=== PATIENT | female | born 1975 | race Caucasian/White ===

== ENCOUNTER → 2020-09-17 15:29 | Outpatient (CLI) | payer BC, SELFPAY ==
--- NOTE | ~2020-09-17 | MM_ITS ---
EXAMINATION: MM screening [facility] HISTORY: Screening TECHNIQUE: Craniocaudal and mediolateral oblique 3-D tomosynthesis images were obtained and synthetic 2-D images were generated. CAD analysis was submitted and interpreted. COMPARISON: Comparison to multiple prior studies sequentially, with oldest reviewed study dated 11/08. BREAST PARENCHYMAL COMPOSITION: There are scattered areas of fibroglandular density. FINDINGS: There is no evidence of suspicious mass, calcification, or architectural distortion to sugg est malignancy in either breast. There has been no suspicious interval change. IMPRESSION: 1. No mammographic evidence of malignancy. 2. Recommend routine screening mammography in one year. BI-RADS Category 1: Negative Reviewed, dictated and finalized at location A.
== END ==
PROVIDERS: Visit Provider Nurse Practitioner
DX: Z12.31 Encounter for screening mammogram for malignant neoplasm of breast (principal)
CPT/HCPCS: 77063; 77067

== ENCOUNTER → 2022-02-11 08:23 | Outpatient (CLI) | payer BC, SELFPAY ==
--- NOTE | ~2022-02-11 | MM_ITS ---
EXAMINATION: MM screening [facility] HISTORY: Screening TECHNIQUE: Craniocaudal and mediolateral oblique 3-D tomosynthesis images were obtained and synthetic 2-D images were generated. CAD analysis was submitted and interpreted. COMPARISON: Comparison to multiple prior studies sequentially, with oldest reviewed study dated 11/10. BREAST PARENCHYMAL COMPOSITION: There are scattered areas of fibroglandular density. FINDINGS: There is no evidence of suspicious mass, calcification, or architectural distortion to sugg est malignancy in either breast. There has been no suspicious interval change. IMPRESSION: 1. No mammographic evidence of malignancy. 2. Recommend routine screening mammography in one year. BI-RADS Category 1: Negative Reviewed, dictated and finalized at location A.
== END ==
PROVIDERS: PCP Family Medicine; Visit Provider Advanced Practice Midwife
DX: Z12.31 Encounter for screening mammogram for malignant neoplasm of breast (principal)
CPT/HCPCS: 77063; 77067

== ENCOUNTER 2022-12-16 11:38 | Emergency (ER) | payer BC, SELFPAY ==
[2022-12-16] VITALS (21 sets, daily range): BP systolic 94–122; BP diastolic 60–82; PULSE 65–98; RESP 16–20; TEMP 36.5; O2SAT 93–100
[2022-12-16 12:06] LABS: Basophils Percent Auto 0.3 % (0.2-1.2); Eosinophils Absolute Auto 0.1 K/mm3 (0-0.3); Eosinophils Percent Auto 1.9 % (0-4.4); Hematocrit 43.1 % (37.0-47.0); Hemoglobin 14.1 g/dL (12.0-15.0); Immature Granulocyte Absolute 0.01 K/mm3 (0.00-0.031); Immature Granulocyte Percent A 0.2 % (0-0.5); Lymphocytes Absolute Auto 1.73 K/mm3 (0.9-3.2); Lymphocytes Percent Auto 29.9 % (18.3-44.2); Mean Corpuscular HGB Conc 32.7 g/dl (32-36); Mean Corpuscular Hemoglobin 28.6 pg (26-34); Mean Corpuscular Volume 87.4 fl (80-100); Mean Platelet Volume 11.9 fl (7.4-10.4); Monocytes Absolute Auto 0.5 K/mm3 (0.1-0.6); Monocytes Percent Auto 8.1 % (2.6-8.5); Neutrophils Absolute Auto 3.5 K/mm3 (1.3-6.7); Neutrophils Percent Auto 59.6 % (45.5-73.1); Platelet Count Result 232 k/mm3 (150-375); Red Blood Count 4.93 M/mm3 (4.2-5.4); Red Cell Distribution Width 14.3 % (11.5-14.5); White Blood Count 5.8 K/mm3 (4.5-10.0)
[2022-12-16 12:18] LABS: Alanine Aminotransferase 24 U/L (6-35); Albumin Level 4.2 g/dL (3.5-5.1); Alkaline Phosphatase 55 U/L (38-126); Anion Gap 16 mmol/L (8-16); Appearance Urine Clear (Clear); Aspartate Amino Transferase 34 U/L (14-36); Bacteria Urine None Seen /hpf; Bilirubin Urine Negative (Negative); Bilirubin,Total 0.5 mg/dL (0.2-1.3); Blood Urea Nitrogen 15 mg/dL (7-17); Blood Urine 1+ (Negative); Calcium 9.3 mg/dL (8.4-10.2); Carbon Dioxide 17 mmol/L (22-30); Chloride 105 mmol/L (98-107); Color Urine Yellow (Yellow); Estimated CRCL calculation 92 ml/min; Estimated Glomerular Filt Rate > 60; Glucose 85 mg/dL (65-110); Glucose Urine UA Negative (Negative); Ketones Urine 4+ mg/dL (Negative); Leukocyte Esterase Ur Trace LEU/UL (Negative); Lipase 129 U/L (23-300); Need Manual Microscopic Reviewed; Nitrate Urine Negative (Negative); Non Pathogenic Casts >20; Potassium 3.3 mmol/L (3.4-5.0); Protein Urine 1+ mg/dL (Negative); Sodium 138 mmol/L (137-145); Specific Grav Ur 1.021 (1.001-1.035); Squamous Epithelial Cell Urine Few /hpf (Few); WBC Urine 0-5 /hpf
[2022-12-16 12:21] LABS: Add Urine Microscopic? YES
[2022-12-16] MEDS: SODIUM CHLORIDE 0.9% IV 1,000 ML 999 ML IV CONT (12:57)
--- NOTE | 2022-12-16 14:45 | ED.NAVMDI ---
HPI - Nausea/Vomiting/Diarrhea General Chief complaint: Nausea/Vomiting/Diarrhea Stated complaint: HX GASTRIC BYPASS,DIZZINESS,N/V Time Seen by Provider: 12/16/22 12:37 History of Present Illness HPI Narrative: Patient is a 47-year-old female who presents ER with nausea and vomiting concerns for dehydration. Patient underwent gastric bypass surgery at [facility] 1 month ago. She is scheduled for follow-up EGD to make sure she does not have an esophageal stricture as sometimes lumpy food will get caught and she will vomit back up. No fevers or chills or sweats. No blood in emesis. No increased abdominal discomfort. No bloating. She is having flatus without issue. Related Data Home Medications Medication Instructions Recorded Confirmed cholecalciferol (vitamin D3) 1,250 1,250 mcg PO WEEKLY 11/24/22 11/24/22 mcg (50,000 unit) capsule omeprazole 20 mg capsule,delayed 20 mg PO DAILY 11/24/22 11/24/22 release Allergies Allergy/AdvReac Type Severity Reaction Status Date / Time No Known Allergies Allergy Mild Verified 12/16/22 12:51 nkfa Allergy Unknown Unknown Uncoded 12/16/22 12:51 Review of Systems Review of Systems: All systems reviewed & are unremarkable except as noted in HPI and below Constitutional: Constitutional: Denies chills, Denies fatigue and Denies fever(s) ENT: Reports dysphagia, Denies nasal congestion and Denies sore throat Cardiovascular: Cardiovascular: Denies chest pain, Denies rapid heart rate and Denies radiating jaw, neck or arm pain Respiratory: Respiratory: Denies cough and Denies dyspnea Gastrointestinal: Gastrointestinal: Denies abdominal pain, Reports nausea and Reports vomiting [facility] Past Medical History Medical History (Updated 12/16/22 @ 15:27 by Fabricio Jj MD) Gallbladder & bile duct stone, acute cholecystitis and obstruction Surgical History Surgical History (Updated 11/24/22 @ 13:49 by Miley Goode MA) Gastric bypass status for obesity H/O hernia repair Family History Family History Other Family history of malignant neoplasm Social History Social History Smoking status: Former smoker Second hand tobacco smoke exposure: No Smoking end date: 04/16/95 Alcohol intake: current Substance use: never Substance use type: does not use Living arrangements: with family Gender identity (if verbalized by the patient): Female Sexual Orientation (if Verbalized by the Patient): Straight or Heterosexual Spiritual care concerns: No Agree to blood products: Yes Exam Narrative: GENERAL: Well-appearing, well-nourished, and in no acute distress. HEAD: Normocephalic, atraumatic. ENT: Mucous membranes moist. CHEST: Clear to auscultation. No respiratory distress. HEART: Regular rate and rhythm. Normal peripheral pulses. ABDOMEN: Soft, nontender, nondistended. EXTREMITIES: Normal range of motion. No edema. SKIN: Warm, dry, no rash. NEURO:Alert and oriented x3. PSYCH: Normal mood and affect. Course Course Emergency Course: Patient received IV fluid. She is tolerating oral liquids without issue. She feels much better. She has been informed of her lab results which are unremarked markable with exception of the ketones in her urine. Vital Signs Vital signs: Vital Signs Temperature 97.7 F 12/16/22 11:43 Pulse Rate 95 12/16/22 11:43 Respiratory Rate 20 12/16/22 11:43 Blood Pressure 109/63 12/16/22 11:43 Pulse Oximetry 99 12/16/22 11:43 Oxygen Delivery Room Air 12/16/22 11:43 Temperature 97.7 F 12/16/22 11:43 Pulse Rate 70 12/16/22 15:00 Respiratory Rate 18 12/16/22 15:00 Blood Pressure 94/60 L 12/16/22 15:00 Pulse Oximetry 97 12/16/22 15:01 Oxygen Delivery Room Air 12/16/22 11:43 MDM - Nausea/Vomiting/Diarrhea Lab Data 12/16/22 11:56 12/16/22 11:56
== END 2022-12-16 15:32 | disposition home or self-care (01) ==
PROVIDERS: Emergency Provider Emergency Medicine; PCP Family Medicine
DX: E86.0 Dehydration (principal); Z87.891 Personal history of nicotine dependence
CPT/HCPCS: 36415; 80053; 81001; 81025; 83690; 85025; 96360; 99283; J7030

== ENCOUNTER → 2023-03-03 07:38 | Outpatient (CLI) | payer BC, SELFPAY ==
--- NOTE | ~2023-03-03 | MM_ITS ---
EXAMINATION: MM screening [facility] HISTORY: Screening mammogram TECHNIQUE: Craniocaudal and mediolateral oblique 3-D tomosynthesis images were obtained and synthetic 2-D images were generated. CAD analysis was submitted and interpreted. COMPARISON: 02/11/2022, 09/17/2020, 09/2018 bilateral screening mammogram examinations BREAST PARENCHYMAL COMPOSITION: There are scattered areas of fibroglandular density. FINDINGS: There is no evidence of suspicious mass, calcification, or architectural distortion to sugg est malignancy in either breast. There has been no suspicious interval change. IMPRESSION: 1. No mammographic evidence of malignancy. 2. Recommend routine screening mammography in one year. BI-RADS Category 1: Negative Reviewed, dictated and finalized at location A. [employer]
== END ==
PROVIDERS: PCP Obstetrics & Gynecology Gynecology; Visit Provider Obstetrics & Gynecology Gynecology
DX: Z12.31 Encounter for screening mammogram for malignant neoplasm of breast (principal)
CPT/HCPCS: 77063; 77067

== ENCOUNTER 2024-01-07 00:07 | Day surgery (SDC) | payer BC, SELFPAY ==
[2023-12-28 14:54] VITALS: BMI 29.1
[2024-01-07 09:19] VITALS: BP 105/66; PULSE 68; RESP 18; TEMP 36.5; O2SAT 99; BMI 28.8
[2024-01-07 09:23] LABS: BEDSIDEPREGUCG Negative (Negative)
[2024-01-07] MEDS: LACTATED RINGERS 1,000 ML 150 ML IV CONT (09:30)
--- NOTE | 2024-01-07 10:30 | WPDANESEPPF ---
Anes - Initial Pre Proc Eval Procedure: Operation Date: 01/07/24 10:30 Proposed Procedures p Screening Colonoscopy - Chato Phillips DO Date/Time: 01/07/24 10:30 Surgeon: Chato Phillips DO Pre Op Diagnosis: Screening for malignant neoplasm of colon Patient Data Age: 48 Gender: F Height: 1.63 m Weight: 76.1 kg Last Vital Signs Temp 97.7 F 01/07/24 09:19 Pulse 68 01/07/24 09:19 Resp 18 01/07/24 09:19 BP 105/66 01/07/24 09:19 Pulse Ox 99 01/07/24 09:19 O2 Del Method Room Air 01/07/24 09:19 Allergies Allergy/AdvReac Type Severity Reaction Status Date / Time No Known Allergies Allergy Mild Verified 01/07/24 09:16 Home Medications Medication Instructions Recorded Confirmed Type scopolamine base 1 mg over 3 days 1 patch transdermal Q3D PRN motion 06/26/22 12/28/23 Rx transdermal patch (Transderm-Scop) sickness #4 ea cholecalciferol (vitamin D3) 1,250 1,250 mcg PO WEEKLY 11/24/22 01/07/24 History mcg (50,000 unit) capsule citalopram 40 mg tablet 40 mg PO DAILY 01/07/24 History Laboratory Tests 01/07/24 09:17 POC Urine HCG, Qual Negative (Negative) Patient hx anesthesia problems: none Family hx anesthesia problems: none Results Review: All pre-operative results and documents have been reviewed as part of the pre-operative evaluation. [facility] Past Medical History Medical History Gallbladder & bile duct stone, acute cholecystitis and obstruction Surgical History Surgical History Gastric bypass status for obesity H/O hernia repair Family History Family History Other Family history of malignant neoplasm Social History Social History Smoking status: Never smoker Second hand tobacco smoke exposure: No Smoking end date: 04/16/95 Alcohol intake: never Substance use: never Substance use type: does not use Living arrangements: with family Gender identity (if verbalized by the patient): Female Sexual Orientation (if Verbalized by the Patient): Straight or Heterosexual Spiritual care concerns: No Agree to blood products: Yes Anes - Eval Final PreProcedure Day of Procedure 01/07/24 10:30 Patient weight: normal Heart: regular rate and rhythm Lungs: clear to auscultation Airway: Mallampati scale class II Neurological: alert and oriented Last oral intake: >/= 8 hours ASA classification: II Emergent: no Anesthetic plan: proceed Anesthesia type and monitoring: general GIVS and standard monitoring Results Review: All pre-operative results and documents have been reviewed as part of the pre-operative evaluation. Informed Consent: The patient's anesthetic plan and its attendant risks and benefits were discussed with the patient/family/POA. Questions were solicited and answers provided to the satisfaction of the patient/family/POA.
--- NOTE | 2024-01-07 10:36 | PM.IMHP ---
H&P: HPI History of Present Illness Date/Time: 01/07/24 10:36 Chief Complaint: screening for colorectal cancer Narrative: this is a 48-year-old woman who presents for her 1st colonoscopy. She denies any hematochezia or melena. She denies any family history of colon cancer. Review of Systems Review of Systems: All systems reviewed & are unremarkable except as noted in HPI and below Constitutional: Constitutional: Denies chills, Denies fever(s), Denies headache(s) and Denies weight loss Eyes: Eyes: Denies change in vision ENT: Denies dizziness, Denies headache(s), Denies neck mass and Denies throat swelling Cardiovascular: Cardiovascular: Denies chest pain, Denies lightheadedness and Denies dyspnea Respiratory: Respiratory: Denies cough, Denies dyspnea and Denies wheezing Gastrointestinal: Gastrointestinal: Denies abdominal pain, Denies change in bowel habits, Denies nausea and Denies vomiting Genitourinary: Genitourinary: Denies hematuria and Denies dysuria Musculoskeletal: Musculoskeletal: Reports as per HPI Integumentary/Breasts: Skin/Breast: Reports as per HPI Neurologic: Denies dizziness and Denies headache(s) Allergic/Immunologic: Allergic/Immunologic: Denies throat swelling and Denies wheezing PMFSH Past Medical History Medical History Gallbladder & bile duct stone, acute cholecystitis and obstruction Surgical History Surgical History Gastric bypass status for obesity H/O hernia repair Family History Family History Other Family history of malignant neoplasm Social History Social History Smoking status: Never smoker Second hand tobacco smoke exposure: No Smoking end date: 04/16/95 Alcohol intake: never Substance use: never Substance use type: does not use Living arrangements: with family Gender identity (if verbalized by the patient): Female Sexual Orientation (if Verbalized by the Patient): Straight or Heterosexual Spiritual care concerns: No Agree to blood products: Yes Meds Home Medications and Allergies Home Medications Medication Instructions Recorded Confirmed Type scopolamine base 1 mg over 3 days 1 patch transdermal Q3D PRN motion 06/26/22 12/28/23 Rx transdermal patch (Transderm-Scop) sickness #4 ea cholecalciferol (vitamin D3) 1,250 1,250 mcg PO WEEKLY 11/24/22 01/07/24 History mcg (50,000 unit) capsule citalopram 40 mg tablet 40 mg PO DAILY 01/07/24 History Allergies Allergy/AdvReac Type Severity Reaction Status Date / Time No Known Allergies Allergy Mild Verified 01/07/24 09:16 Vital Signs Vital Signs - 24 hr 01/07/24 09:19 Temperature 97.7 F Pulse Rate 68 Respiratory Rate 18 Blood Pressure 105/66 Pulse Oximetry 99 Oxygen Delivery Room Air Exam Const: General: no acute distress and alert Orientation/consciousness: patient oriented x3 HENMT: Head: normocephalic and atraumatic Ears: hearing grossly normal bilaterally Face/Nose/Sinus: Normal nares present Mouth: Yes Normal oral and palatal mucosa present Eyes: Periorbital: periorbital findings normal Sclera: sclerae normal EOM: EOMs intact bilaterally Neck: Neck: normal visual inspection, no lymphadenopathy and trachea midline Chest: Chest palpation & inspection: normal inspection of the chest Resp: Effort & Inspection: normal respiratory effort Auscultation: clear to auscultation bilaterally Cardio: Jugular venous distension: no JVD Rate: regular rate Rhythm: regular rhythm Heart sounds: S1 normal heart sound present and S2 normal heart sound present Peripheral pulses: Peripheral pulses 2+ throughout GI: Inspection: normal to inspection GI Palp: Yes Soft to palpation, No Tenderness to palpation present (GI), No Guarding due to palpation present (
[2024-01-07 11:05] VITALS: BP 100/97; PULSE 58; RESP 19; O2SAT 99
[2024-01-07 11:15] VITALS: BP 106/84; PULSE 61; RESP 21; O2SAT 99
[2024-01-07 11:22] VITALS: BP 102/80; PULSE 57; RESP 18; O2SAT 100
== END 2024-01-07 11:34 | disposition home or self-care (01) ==
PROVIDERS: Anesthesiology; PCP Family Medicine; Visit Provider Surgery
PROC: 0DJD8ZZ Inspection of Lower Intestinal Tract, Via Natural or Artificial Opening Endoscopic (ICD-10-PCS; CPT 45378; principal; 2024-01-07 10:30)
DX: Z12.11 Encounter for screening for malignant neoplasm of colon (principal); Z98.890 Other specified postprocedural states; Z98.84 Bariatric surgery status; Z80.9 Family history of malignant neoplasm, unspecified
CPT/HCPCS: 45378; J2704; J7120

== ENCOUNTER 2024-10-30 12:22 | Outpatient (CLI) | payer BC, SELFPAY ==
--- NOTE | ~2024-10-30 | MM_ITS ---
EXAMINATION: MM screening [facility] HISTORY: Screening TECHNIQUE: Craniocaudal and mediolateral oblique 3-D tomosynthesis images were obtained and synthetic 2-D images were generated. CAD analysis was submitted and interpreted. COMPARISON: Comparison to multiple prior studies sequentially, with oldest reviewed study dated 12/08. BREAST PARENCHYMAL COMPOSITION: Dense: The breasts are heterogeneously dense, which may obscure small masses FINDINGS: There is left subareolar asymmetry. There is left nipple inversion. The right breast is sta ble without evidence for malignancy. IMPRESSION: 1. Left subareolar breast asymmetry with nipple inversion. 2. Additional mammographic views and possible breast ultrasound are recommended. BI-RADS Category 0: Incomplete: Needs additional imaging evaluation. Reviewed, dictated and finalized at location B. IMPRESSION: 1. Left subareolar breast asymmetry with nipple inversion. 2. Additional mammographic views and possible breast ultrasound are recommended . BI-RADS Category 0: Incomplete: Needs additional imaging evaluation.
== END 2024-10-30 12:23 | disposition home or self-care (01) ==
LOC: MICIMG 12:23
PROVIDERS: PCP Family Medicine; Visit Provider Obstetrics & Gynecology Gynecology
DX: Z12.31 Encounter for screening mammogram for malignant neoplasm of breast (principal); R92.8 Other abnormal and inconclusive findings on diagnostic imaging of breast
CPT/HCPCS: 77063; 77067

== ENCOUNTER 2024-11-25 07:58 | Outpatient (CLI) | payer BC, SELFPAY ==
--- NOTE | ~2024-11-25 | MMUS_ITS ---
EXAMINATION: MM diagnostic william BI w murray, US breast LT complete HISTORY: Follow-up left breast asymmetry TECHNIQUE: Additional 3-D tomosynthesis images of the left breast were performed and synthetic 2-D im ages were generated. CAD analysis was submitted and interpreted. High resolution complete left breast ultrasound was performed. COMPARISON: Comparison to multiple prior studies sequentially, with oldest reviewed study dated 12/27. BREAST PARENCHYMAL COMPOSITION: Dense: The breasts are heterogeneously dense, which may obscure small masses FINDINGS: MAMMOGRAPHIC FINDINGS: There is a partially obscured mass in the subareolar location of the left breast. There are no suspic ious calcifications or architectural distortion. ULTRASOUND: Complete US of all 4 quadrants of the left breast/s and retroareolar region was reviewed. There are m ultiple cysts of the left breast. At 1:00 near the nipple there is a 1.3 cm cyst. There is a cluster of microcysts at 5:00 near the nipple. No suspicious masses to suggest malignancy. IMPRESSION: 1. No evidence for malignancy in the left breast. Benign findings. 2. Routine yearly screening mammogram and regular clinical breast examination are recommended. BI-RADS Category 2: Benign finding(s). Reviewed, dictated and finalized at location A. IMPRESSION: 1. No evidence for malignancy in the left breast. Benign findings. 2. Routine yearly screening mammogram and regular clinical breast examination a re recommended. BI-RADS Category 2: Benign finding(s).
--- OUTSIDE RECORDS SUMMARY | 2024-11-25 08:05 | XMS_ITS | Clinical Summary ---
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 Gender Identity Not on file Sexual Orientation Not on file Plan of Treatment Health Maintenance Due Date Last Done Comments Hepatitis C Virus (HCV) Screening 1973 TdaP Immunization 1973 Hepatitis B Immunization (1 of 3 - 19+ 3-dose series) 1992 Pap Smear 1994 Cervical Cancer Screening (CCS) 11/10/2003 HPV/Cotest 11/10/2003 Cologuard 2018 Colonoscopy 2018 Colorectal Cancer Screening 2018 Immunochemical Fecal Occult Blood 2018 Pneumococcal Immunization (5 0+ years) (1 of 1 - PCV) 11/10/2023 Zoster Immunization (1 of 2) 11/10/2023 SARS-COV-2 Immunization ( season) 2023 03/23/2021, 07/17/2020, 06/27/2020 Influenza Immunization (#1) 2024 Respiratory Syncytial Virus (RSV) Immunization (Adult) (1 - 1-dose 75+ series) 2048 Human Papillomavirus (HPV) Immunization Aged Out No longer eligible b ased on patient's age to complete this topic Meningococcal Immunization (ACWY) Aged Out No longer eligible b ased on patient's age to complete this topic Rotavirus Immunization Aged Out No lo nger eligible based on patient's age to complete this topic
--- OUTSIDE RECORDS SUMMARY | 2024-11-25 08:06 | XMS_ITS | Patient Health Record ---
Author Organization [facility] Address [address] [place], [place] [id number] Care Team Providers Care Psych Tech Name Role Phone SUZANNE LOMBARDO Unavailable [phone] Marguerite Couch Unavailable Unavailable Reason For Referral No Information Plan Of Treatment No Information Insurance Providers Payer Name Payer Address Payer Phone Subscriber Number Group Number Insured Name Patient Relationship to Insured Coverage Start Date Coverage End Date [facility] [address] [address] [place] [address] [id number] ROSA KRAFT Spouse - patient is the spouse of the insured
--- OUTSIDE RECORDS SUMMARY | 2024-11-25 08:06 | XMS_ITS | Clinical Summary ---
Author Organization [facility] Address [address] [place] [address] Care Team Providers Care Geotechnical Engineer Name Role Phone Marguerite Couch MD Primary Care Provider [phone] Source Comments [facility],non-owned Affiliates and Associated Physician Practices is amultiple site organization consisting of ambulatory clinics and hospital sitesin [place], [place], [place] and [place]. This disclosure is being madepursuant to the Care Everywhere program and may not contain all information available regarding this patient. Last updated 18.[facility] Allergies No known active allergies Medications * Be aware that medications may not be up to date on this document. Alwaysverify current medications with the patient. vitamin D, ergocalciferol, (Drisdol) 1.25 MG (07429 UT) capsule every 7 days 08/13/2022 Active citalopram (CeleXA) 40 MG tablet Take 1 (one) tablet by mouth once daily 10/11/2022 Active Active Problems Problem Noted Date Diagnosed Date Iron deficiency 02/29/2024 Chest pain of uncertain etiology 11/13/2022 Morbid obesity 11/13/2022 Family History Medical History Relation Name Comments Cancer - Liver Father Cancer - Breast Neg Hx Cancer - Colon Neg Hx Relation Name Status Comments Father Mother Alive Social History Tobacco Use Types Packs/Day Years Used Date Smoking Tobacco: Former Smokeless Tobacco: Never Tobacco Cessation:Counseling Given: Not Answered Alcohol Use Standard Drinks/Week Comments Not Currently 1 (1 standard drink = 0.6 oz pur e alcohol) Overall Financial Resource Strain (CARDIA) Answe r Date Recorded How hard is it for you to pa y for the very basics like food, housing, medical care, and heating? Not hard at all 11/13/2022 PHQ-2 Answer Date Recorded Patient Health Questionnaire-2 Score 0 04/03/2024 [facility] Occup[facility] - Occupational Stress Questionnaire Answer Date Recorded Do you feel stress - tense, restless, nervous, or anxious, or unable to sleep at night because your mind is troubled all the time - these days? Not at all 11/13/2022 Hunger Vital Sign Answer Date Recorded Within the past 12 months, y ou worried that your food would run out before you got the money to buy more. Never true 11/14/19 23 Within the past 12 months, t he food you bought just didn't last and you didn't have money to get more. Never true 11/13/2022 PRAPARE - Transportation Answer Date Re corded In the past 12 months, has l ack of transportation kept you from medical appointments or from getting medications? No 10/16 In the past 12 months, has l ack of transportation kept you from meetings, work, or from getting things needed for daily living? No 11/13/2022 Housing Stability Vital Sign Answer Isidoro e Recorded In the last 12 months, was t here a time when you were not able to pay the mortgage or rent on time? No 11/13/2022 In the last 12 months, how many places have you lived? 1 11/13/2022 In the last 12 months, was t here a time when you did not have a steady place to sleep or slept in a senior care (including now)? 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 Gender Identity Not on file Sexual Orientation Not on file Last Filed Vital Signs Vital Sign Reading Time Taken Comments Blood Pressure 112/66 04/03/2024 1:03 PM MEDICAL ACCOUNTS RECEIVABLE SPECIALIST Pulse 58 04/03/2024 1:03 PM MEDICAL ACCOUNTS RECEIVABLE SPECIALIST Temperature 36.8 C (98.2 F) 04/03/2024 1:03 PM MEDICAL ACCOUNTS RECEIVABLE SPECIALIST Respiratory Rate 16 04/03/2024 1:03 PM MEDICAL ACCOUNTS RECEIVABLE SPECIALIST Oxygen Saturation 100% 04/03/2024 1:03 PM MEDICAL ACCOUNTS RECEIVABLE SPECIALIST Inhaled Oxygen Concentration - - Weight 77.3 kg (170 lb 6.4 oz) 12/31/2023 1:24 P M CDT Height 160 cm (5' 3) 12/31/2023 1:24 PM CDT Body Mass Index 30.19 12/31/2023 1:24 PM CDT Plan of Treatment Upcoming Encounters Date Type Department Care Team (Late st Contact Info) Description 12/30/2024 2:30 PM CDT Office Visit [facility] [address], [address] [place] [address] Klarissa Suresh, ORTHOTICS TECHNICIAN-METAL GRINDER [address] [place] [address] Health Maintenance Due Date Last Done Comments COLOGUARD (AGES 45-75) - COLON CA SCREENING 1973 COLON MONITORING 1973 COLONOSCOPY - COLON CA SCREENING 1973 CT COLONOGRAPHY - COLON CA SCREENING 1973 Colorectal Cancer Screening 1973 FIT - COLON CA SCREENING 1973 FLEX SIG - COLON CA SCREENING 1973 LIPID TESTING 1973 MAMMOGRAM 1973 HIV SCREENING 1988 HEPATITIS C SCREENING 11/05/1991 DTAP/TDAP/TD VACCINES (1 - Tdap) 1992 HEPATITIS B VACCINE (1 of 3 - 19+ 3-dose series) 1992 PAP SMEAR 1994 PNEUMOCOCCAL VACCINE 50+ (1 of 1 - PCV) 11/10/2023 ZOSTER VACCINE (1 of 2) 11/10/2023 COVID-19 VACCINE (1 - season) 2023 DEPRESSION SCREENING 04/16/2024 04/03/2024 INFLUENZA VACCINE (#1) 2024 SCREENING FOR DIABETES 05/21/2026 4, 11/15/2022, 11/15/2022, Additional history exists HIB VACCINE Aged Out No longer eligi ble based on patient's age to complete this topic HPV VACCINE Aged Out No longer eligi ble based on patient's age to complete this topic MENINGOCOCCAL (Group B) VACCINE SHARED DECISION-MAKING Aged Out No longer eligible based on patient's age to complete this topic MENINGOCOCCAL GROUPS A/C/Y/W VACCINE Aged Out No longer eligible based on patient's age to complete this topic Procedures Procedure Name Priority Date/Time Associated Diagnosis Comments COMPREHENSIVE METABOLIC PANEL Routine 05/21/2023 12:06 PM MEDICAL ACCOUNTS RECEIVABLE SPECIALIST Morbid obesity Bariatric surgery status Vitamin deficiency Vitamin D deficiency Postsurgical malabsorption from Last 3 Months or Most Recently Relevant to Health Maintenance Results * (ABNORMAL) COMPREHENSIVE METABOLIC PANEL (05/21/2023 12:06 PM MEDICAL ACCOUNTS RECEIVABLE SPECIALIST) Glucose 83 70 - 99 mg/dL [facility] ACCOUNT BILL BUN 15 6 - 24 mg/dL [facility] ACCOUNT BILL Creatinine 0.56(L) 0.57 - 1.00 mg/dL [facility] ACCOUNT BILL eGFR by CKD-EPI 112 >59 mL/min/1.7 3 [facility] ACCOUNT BILL BUN/Creatinine Ratio 27(H) 9 - 23 [facility] ACCOUNT BILL Sodium 141 134 - 144 mmol/L [facility] ACCOUNT BILL Potassium 4.5 3.5 - 5.2 mmol/L [facility] ACCOUNT BILL Chloride 105 96 - 106 mmol/L [facility] ACCOUNT BILL CO2 19(L) 20 - 29 mmol/L [facility] ACCOUNT BILL Calcium 9.0 8.7 - 10.2 mg/dL [facility] ACCOUNT BILL Protein Total 6.7 6.0 - 8.5 g/dL [facility] ACCOUNT BILL Albumin 4.1 3.9 - 4.9 g/dL [facility] ACCOUNT BILL Globulin Total 2.6 1.5 - 4.5 g/dL [facility] ACCOUNT BILL Albumin/Globulin Ratio 1.6 1.2 - 2.2 [facility] ACCOUNT BILL Bilirubin Total 0.2 0.0 - 1.2 mg/dL [facility] ACCOUNT BILL Alkaline Phosphatase 60 44 - 121 IU/L [facility] ACCOUNT BILL AST 18 0 - 40 IU/L [facility] ACCOUNT BILL ALT 15 0 - 32 IU/L [facility] ACCOUNT BILL Blood BLOOD SPECIMEN / Unknown 05/21/2023 12:06 PM MEDICAL ACCOUNTS RECEIVABLE SPECIALIST 05/21/2023 Narrative Resulting Agency Comment Lab Testing performed at: [facility] [address] [id number] Klarissa Suresh ORTHOTICS TECHNICIAN-METAL GRINDER LAB - CHEMISTRY [facility]ILL Final Result [facility] [place] [address] [place] [id number] from Last 3 Months or Most Recently Relevant to Health Maintenance Insurance [employer] Advance Directives * Full Code (Latest Code Status on File) Date Activated Date Inactivated Comments 11/13/2022 1:18 PM 11/15/2022 1:40 PM Care Teams Geotechnical Engineer Relationship Specialty Start Date End Date Marguerite Couch MD [address] [place] [address] PCP - General Family Medicine 07/23/16
== END 2024-11-25 07:59 | disposition home or self-care (01) ==
PROVIDERS: PCP Family Medicine; Visit Provider Obstetrics & Gynecology Gynecology
DX: R92.8 Other abnormal and inconclusive findings on diagnostic imaging of breast (principal)
CPT/HCPCS: 76641; 77062; 77066; G0279

== ENCOUNTER 2024-12-15 09:36 | Emergency (ER) | payer BC, SELFPAY ==
--- NOTE | ~2024-12-15 | XR_ITS ---
EXAMINATION: XR forearm LT 2V, XR wrist LT min 3V DATE: 12/15/2024 10:14 (accession [id number]), 12/15/2024 10:15 (accession [id number]) INDICATION: Left forearm injury TECHNIQUE: 1. AP an lateral views of the left forearm were obtained. 2. PA, lateral and 2 oblique views of the left wrist were obtained. COMPARISON: none FINDINGS: extra-articular fracture of the distal metaphyseal region of the left radius. The fracture is dorsal and radial impacted with 7 mm dorsal displacement and, dorsal and radial angulation resulting in 23 degree dorsal tilt and 6 degree radial inclination of the distal articular surface. Mild comminution along the radial side of the fracture planes Mild distraction of an ulnar solid avulsion fracture. No fracture of the fourth proximal radius and ulna with normal alignment and joint spaces of the left elbow. No fractures with normal alignment and joint spaces and the visualized left hand. Soft tissue swelling about the wrist. IMPRESSION: 1. Mildly comminuted extra articular fracture of the distal left radius with some dorsal displacement and dorsal and radial angulation. 2. Mildly distracted ulnar styloid avulsion fracture. Reviewed, dictated and finalized at location A. IMPRESSION: 1. Mildly comminuted extra articular fracture of the distal left radius with so me dorsal displacement and dorsal and radial angulation. 2. Mildly distracted ulnar styloid avulsion fracture.
--- NOTE | ~2024-12-15 | XR_ITS ---
EXAMINATION: XR wrist LT min 3V DATE: 12/15/2024 12:32 INDICATION: Postreduction left wrist fracture TECHNIQUE: Posteroanterior, ulnar deviation, oblique, and lateral views of the left wrist were obtained. COMPARISON: none FINDINGS: Again seen is a mildly comminuted extra articular fracture across the distal metaphyseal region of the left radius. There is no interval change in a 7 mm dorsal and 2 mm radial displacement. The dorsal and radial angulation is decreased with now 14 degree dorsal tilt and 12 degree radial inclination of the distal articular surface. No interval change in mild distraction of an ulnar styloid avulsion fracture fragment. Wire mesh traction device about the thumb with widening of the first carpometacarpal and metacarpophalangeal joint spaces. 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 IMPRESSION: 1. Mildly comminuted extra articular fracture of the distal left radial metaphyseal region with unchanged displacement but decrease in degree of dorsal and radial angulation as detailed above. 2. Unchanged mild distraction of an ulnar styloid avulsion fracture. Reviewed, dictated and finalized at location A. IMPRESSION: 1. Mildly comminuted extra articular fracture of the distal left radial metaphy seal region with unchanged displacement but decrease in degree of dorsal and ra dial angulation as detailed above. 2. Unchanged mild distraction of an ulnar styloid avulsion fracture.
[2024-12-15 09:40] VITALS: BP 128/91; PULSE 78; RESP 16; TEMP 37.2; O2SAT 98
--- OUTSIDE RECORDS SUMMARY | 2024-12-15 09:53 | XMS_ITS | Patient Health Record ---
Author Organization [facility] Address [address] [place], [place] [id number] Care Team Providers Care Outsole Leveler Name Role Phone SUZANNE LOMBARDO Unavailable [phone] Marguerite Couch Unavailable Unavailable Reason For Referral No Information Plan Of Treatment No Information Insurance Providers Payer Name Payer Address Payer Phone Subscriber Number Group Number Insured Name Patient Relationship to Insured Coverage Start Date Coverage End Date [facility] [address] [address] [place] [address] [id number] ROSA KRAFT Spouse - patient is the spouse of the insured
--- OUTSIDE RECORDS SUMMARY | 2024-12-15 09:53 | XMS_ITS | Clinical Summary ---
Author Organization [facility] Address [address] [place] [address] Care Team Providers Care Multiple Wire Sawyer Name Role Phone Marguerite Couch MD Primary Care Provider [phone] Source Comments [facility],non-owned Affiliates and Associated Physician Practices is amultiple site organization consisting of ambulatory clinics and hospital sitesin [place], [place], [place] and [place]. This disclosure is being madepursuant to the Care Everywhere program and may not contain all information available regarding this patient. Last updated 18.[facility] Allergies No known active allergies Medications * Be aware that medications may not be up to date on this document. Alwaysverify current medications with the patient. vitamin D, ergocalciferol, (Drisdol) 1.25 MG (93088 UT) capsule every 7 days 08/13/2022 Active [...] Recorded Patient Health Questionnaire-2 Score 0 04/03/2024 [facility] [place] [facility] - Occupational Stress [...] No 11/13/2022 Housing Stability Vital Sign Answer Iisdoro e Recorded In the last 12 months, [...] place to sleep or slept in a alf (including now)? No 11/13/2022 Comments No Sex and Gender Information Value Date Recorded Sex Assigned at Female 10/10/2022 10:10 AM CDT Legal Sex Female 7:42 AM MAINTENANCE PARTS TECHNICIAN Gender Identity Not on file Sexual Orientation Not on file Last Filed Vital Signs Vital Sign Reading Time Taken Comments Blood Pressure 112/66 04/03/2024 1:03 PM MAINTENANCE PARTS TECHNICIAN Pulse 58 04/03/2024 1:03 PM MAINTENANCE PARTS TECHNICIAN Temperature 36.8 C (98.2 F) 04/03/2024 1:03 PM MAINTENANCE PARTS TECHNICIAN Respiratory Rate 16 04/03/2024 1:03 PM MAINTENANCE PARTS TECHNICIAN Oxygen Saturation 100% 04/03/2024 1:03 PM MAINTENANCE PARTS TECHNICIAN Inhaled Oxygen Concentration - - Weight 77.3 kg (170 lb 6.4 oz) 12/31/2023 1:24 P M CDT Height 160 cm (5' 3) 12/31/2023 1:24 PM CDT Body Mass Index 30.19 12/31/2023 1:24 PM CDT Plan of Treatment Upcoming Encounters Date Type Department Care Team (Late st Contact Info) Description 12/30/2024 2:30 PM CDT Office Visit [facility] [address], [address] [place] [address] Klarissa Suresh, GOPHERMAN-FLEET TECHNICIAN [address] [address] [place] [address] Health Maintenance Due Date Last [...] COMPREHENSIVE METABOLIC PANEL Routine 05/21/2023 12:06 PM MAINTENANCE PARTS TECHNICIAN Morbid obesity Bariatric surgery status Vitamin deficiency Vitamin D deficiency Postsurgical malabsorption from Last 3 Months or Most Recently Relevant to Health Maintenance Results * (ABNORMAL) COMPREHENSIVE METABOLIC PANEL (05/21/2023 12:06 PM MAINTENANCE PARTS TECHNICIAN) Glucose 83 70 - 99 mg/dL [facility] [...] BLOOD SPECIMEN / Unknown 05/21/2023 12:06 PM MAINTENANCE PARTS TECHNICIAN 05/21/2023 Narrative Resulting Agency Comment Lab Testing performed at: [facility] [phone] Klarissa Suresh GOPHERMAN[employer]FLEET TECHNICIAN LAB - CHEMISTRY JESU GILL Final Result [facility] [place] [address] [place] [id number] from Last 3 Months or Most Recently Relevant to Health Maintenance Insurance [employer] Advance Directives * Full Code (Latest Code Status on File) Date Activated Date Inactivated Comments 11/13/2022 1:18 PM 11/15/2022 1:40 PM Care Teams Multiple Wire Sawyer Relationship Specialty Start Date End Date Marguerite Couch MD [address] [place] [address] PCP - General Family Medicine 07/23/16
--- NOTE | 2024-12-15 09:54 | ED_ITS ---
HPI - Extremity Injury (Upper) General Chief Complaint: Extremity Injury, Upper <Myah Parnell APRN - Last Filed: 12/15/24 15:40> Stated Complaint: left arm FX, increased pain, NV <Myah Parnell APRN - Last Filed: 15:40> Time Seen by Provider: 12/15/24 09:40 <Myah Parnell APRN - Last Filed: 12/15/24 15:40> History of Present Illness HPI narrative: Patient is a 49-year-old female presents to the ER with left forearm pain. She reports on Sunday, 2 days ago, she was hiking indicate ease and fell forward with her arms outstretched. Patient reports she went to an outside ER who diagnosed her with a radial ulnar fracture on her left forearm. She endorses increased pain, swelling, numbness/tingling in her left hand. Patient reports she has been unable to keep the medicine down due to for pain. She endorses a history of gastric bypass surgery and anxiety. Patient endorses mild relief once OCL removed from patient's left arm. She denies any left shoulder pain, left elbow pain, decreased movement in her digits, open wounds to her skin or recent fevers. <Myah Parnell APRN - Last Filed: 12/15/24 15:40> Related Data Home Medications: Home Medications ?Medication ?Instructions ?Recorded ?Confirmed ?Last Taken ?Type cholecalciferol (vitamin D3) 1,250 1,250 mcg PO WEEKLY 11/24/22 11/12/24 1 Week Ago History mcg (50,000 unit) capsule ~12/31/23 <Myah Parnell APRN - Last Filed: 12/15/24 15:40> Allergies/Adverse Reactions: Allergies Allergy/AdvReac Type Severity Reaction Status Date / Time No Known Allergies Allergy Mild Verified 11/12/24 11:31 <Myah Parnell APRN - Last Filed: 12/15/24 15:40> Review of Systems Review of Systems: All systems reviewed & are unremarkable except as noted in HPI and below <Myah Parnell APRN - Last Filed: 12/15/24 15:40> [facility] Past Medical History Medical History: Medical History Gallbladder & bile duct stone, acute cholecystitis and obstruction <Myah Parnell APRN - Last Filed: 12/15/24 15:40> Surgical History Surgical History: Surgical History H/O hernia repair Gastric bypass status for obesity <Myah Parnell APRN - Last Filed: 12/15/24 15:40> Family History Family History: Family History Other Family history of malignant neoplasm <Myah Parnell APRN - Last Filed: 12/15/24 15:40> Social History Social History: Social History Smoking status: Never smoker Second hand tobacco smoke exposure: No Smoking end date: 04/16/95 Alcohol intake: never Substance use: never Substance use type: does not use Living arrangements: with family Gender identity (if verbalized by the patient): Female Sexual Orientation (if Verbalized by the Patient): Straight or Heterosexual Spiritual care concerns: No Agree to blood products: Yes <Myah Parnell APRN - Last Filed: 12/15/24 15:40> Exam Narrative: GENERAL: Well appearing, well-nourished, non-toxic, in no acute distress. HEAD: Normocephalic, atraumatic. NECK: Supple. No adenopathy, no masses. RESPIRATORY: Airway patent, respirations nonlabored. Clear to auscultation bilaterally, no rales, rhonchi, wheezing. CARDIOVASCULAR: Regular rate and rhythm without murmurs, rubs, or gallops. Peripheral pulses 2+ and equal bilaterally. ABDOMINAL: Soft, nontender, nondistended, no hepatosplenomegaly. Normoactive BS. MUSCULOSKELETAL: Moves all extremities. + swelling to L hand and L forearm (correction between wrist and elbow), + bruising to L hand SKIN: Warm, dry, normal color. No rashes. NEURO: A&O X3. Speech clear. Cranial nerves II-XII intact. No ataxic movements. PSYCHIATRIC: Tearful. Normal interaction. <Myah Parnell APRN - Last Filed: 12/15/24 15:40> Course [employer]APPER/PA Physician Supervision This visit was performed by both a physician and an APC. I performed all aspects of the MDM as documented. <Luiz Bustamante MD - Last Filed: 12/15/24 16:56> Vital Signs Vital signs: Vital Signs Temperature 98.9 F 12/15/24 09:40 Pulse Rate 78 12/15/24 09:40 Respiratory Rate 16 12/15/24 09:40 Blood Pressure 128/91 H 12/15/24 09:40 Pulse Oximetry 98 12/15/24 09:40 Oxygen Delivery Room Air 12/15/24 09:40 Temperature 98.9 F 12/15/24 09:40 Pulse Rate 78 12/15/24 13:41 Respiratory Rate 16 12/15/24 13:41 Blood Pressure 121/74 12/15/24 13:41 Pulse Oximetry 98 12/15/24 13:41 Oxygen Delivery Room Air 12/15/24 09:40 <Myah Parnell APRN - Last Filed: 12/15/24 15:40> Vital Signs Temperature 98.9 F 12/15/24 09:40 Pulse Rate 78 12/15/24 09:40 Respiratory Rate 16 12/15/24 09:40 Blood Pressure 128/91 H 12/15/24 09:40 Pulse Oximetry 98 12/15/24 09:40 Oxygen Delivery Room Air 12/15/24 09:40 Temperature 98.9 F 12/15/24 09:40 Pulse Rate 78 12/15/24 13:41 Respiratory Rate 16 12/15/24 13:41 Blood Pressure 121/74 12/15/24 13:41 Pulse Oximetry 98 12/15/24 13:41 Oxygen Delivery Room Air 12/15/24 09:40 <Luiz Bustamante MD - Last Filed: 12/15/24 16:56> Procedures Cast Removal Cast #1: Date: 12/15/24 <Myah Parnell APRN - Last Filed: 12/15/24 15:40> Time: 10:00 <Myah Parnell APRN - Last Filed: 12/15/24 15:40> Reason for procedure: too tight <Myah Parnell [employer]AL STORAGE WORKER - Last Filed: 12/15/24 15:40> Cut saw used: No <Myah Parnell APRN - Last Filed: 12/15/24 15:40> Cast procedure: removal <Myah Parnell [employer] STORAGE WORKER - Last Filed: 12/15/24 15:40> Post Removal Neuro Exam: intact <Myah Parnell [employer] STORAGE WORKER - Last Filed: 12/15/24 15:40> Post Removal Vascular Exam: intact <Myah Parnell [employer] STORAGE WORKER - Last Filed: 12/15/24 15:40> Patient Tolerated Procedure: well <Myah Parnell [employer] STORAGE WORKER - Last Filed: 12/15/24 15:40> Joint Aspiration/Injection Joint Asp./Inject. 1: Joint Aspiration Date: 12/15/24 <Myah Parnell [employer]ORAGE WORKER - Last Filed: 12/15/24 15:40> Joint Aspiration Time: 11:00 <Myah Parnell [employer] STORAGE WORKER - Last Filed: 12/15/24 15:40> Time Out Performed: Yes <Myah Parnell MET[employer] STORAGE WORKER - Last Filed: 12/15/24 15:40> Side of body: left <Myah Parnell METAL STORAGE WORKER - Last Filed: 12/15/24 15:40> Joint Aspirated: wrist/hand <Myah Parnell [employer] STORAGE WORKER - Last Filed: 12/15/24 15:40> Ultrasound Guidance: No <Myah Parnell [employer] STORAGE WORKER - Last Filed: 12/15/24 15:40> Skin Prep: Povidone-Iodine1% <Myah Parnell MET[employer] STORAGE WORKER - Last Filed: 12/15/24 15:40> Local Anesthetic: lidocaine 1% <Myah Parnell MET[employer] STORAGE WORKER - Last Filed: 12/15/24 15:40> Amount of anesthesia used (mL): 8 <Myah Parnell APRN - Last Filed: 12/15/24 15:40> Needle Size Used: Other (25) <Myah Parnell MET[employer] STORAGE WORKER - Last Filed: 12/15/24 15:40> Fluid Obtained: bloody <Myah Parnell MET[employer] STORAGE WORKER - Last Filed: 12/15/24 15:40> Total fluid obtained (mL): 0 <Myah Parnell MET[employer] STORAGE WORKER - Last Filed: 12/15/24 15:40> Medication Injected, if any: Lidocaine <Myah Parnell MET[employer] STORAGE WORKER - Last Filed: 12/15/24 15:40> Amount of medication injected (mL): 8 <Myah Parnell MET[employer] STORAGE WORKER - Last Filed: 12/15/24 15:40> Patient Tolerated Procedure: well <Myah Parnell MET[employer] STORAGE WORKER - Last Filed: 12/15/24 15:40> Complications: none <Myah Parnell METAL STORAGE WORKER - Last Filed: 12/15/24 15:40> Orthopedic Fracture Reduction Fracture #1: Fracture Reduction date: 12/15/24 <Myah Parnell [employer] STORAGE WORKER - Last Filed: 12/15/24 15:40> Fracture Reduction time: 11:30 <Myah Parnell METAL STORAGE WORKER - Last Filed: 12/15/24 15:40> Time Out Performed: Yes <Myah Parnell METAL STORAGE WORKER - Last Filed: 12/15/24 15:40> Side: right <Myah Parnell METAL STORAGE WORKER - Last Filed: 12/15/24 15:40> Fracture Reduction Location: fibula <Myah Parnell MET[employer] STORAGE WORKER - Last Filed: 12/15/24 15:40> Analgesia: hematoma block <Myah Parnell MET[employer] STORAGE WORKER - Last Filed: 12/15/24 15:40> Pre-Procedure Neuro Vascular Exam: normal <Myah Parnell [employer]ORAGE WORKER - Last Filed: 12/15/24 15:40> Technique: direct manipulation and traction splint <Myah Parnell MET[employer] STORAGE WORKER - Last Filed: 12/15/24 15:40> Post Reduction X-rays Demonstrate: other (minimal reduction to joint ) <Myah Parnell [employer] STORAGE WORKER - Last Filed: 12/15/24 15:40> Post-reduction neuro exam: intact <Myah Pugh ANKUSH Parnell - Last Filed: 12/15/24 15:40> Post-reduction vascular exam: intact <Myah Pugh ANKUSH Parnell - Last Filed: 12/15/24 15:40> Splint Applied: Yes <Myah Lexy JESSEE ParnellN - Last Filed: 12/15/24 15:40> Patient Tolerated Procedure: well <Myah Pugh JESSEE ParnellN - Last Filed: 12/15/24 15:40> Orthopedic Splinting/Casting Injury #1: Splinting/Casting Date: 12/15/24 <Myah Parnell APRN - Last Filed: 12/15/24 15:40> Splinting/Casting Time: 12:35 <Myah Parnell APRN - Last Filed: 12/15/24 15:40> Side: right <Myah L. ANKUSH Parnell - Last Filed: 12/15/24 15:40> Upper Extremity Injury Location: wrist <Myah Pugh JESSEE ParnellN - Last Filed: 12/15/24 15:40> Upper Extremity Immobilizer: sugar tong splint <Myah Parnell APRN - Last Filed: 12/15/24 15:40> Splint: customized in ED <Myah Parnell APRN - Last Filed: 12/15/24 15:40> MDM - Extremity Injury (Upper) MDM Narrative Medical decision making narrative: Patient is a 49-year-old female presents to the ER with left forearm pain. She reports on Sunday, 2 days ago, she was hiking indicate ease and fell forward with her arms outstretched. Patient reports she went to an outside ER who diagnosed her with a radial ulnar fracture on her left forearm. She endorses increased pain, swelling, numbness/tingling in her left hand. Patient reports she has been unable to keep the medicine down due to for pain. She endorses a history of gastric bypass surgery and anxiety. Patient endorses mild relief once OCL removed from patient's left arm. She denies any left shoulder pain, left elbow pain, decreased movement in her digits, open wounds to her skin or recent fevers. Labs Ordered: None necessary Imaging Ordered: Left wrist x-ray, left forearm x-ray Medications Ordered: Morphine 4 mg IV, Zofran 4 mg IV Results: Pt's first L wrist x-ray indicates extra-articular fracture of the distal metaphyseal region of the left radius. The fracture is dorsal and radial impacted with 7 mm dorsal displacement and, dorsal and radial angulation resulting in 23 degree dorsal tilt and 6 degree radial inclination of the distal articular surface. Mild comminution along the radial side of the fracture planes Mild distraction of an ulnar solid avulsion fracture. No fracture of the fourth proximal radius and ulna with normal alignment and joint spaces of the left elbow. No fractures with normal alignment and joint spaces and the visualized left hand. Soft tissue swelling about the wrist. Pt's second L wrist x-ray indicates 1. Mildly comminuted extra articular fracture of the distal left radial metaphyseal region with unchanged displacement but decrease in degree of dorsal and radial angulation as detailed above. 2. Unchanged mild distraction of an ulnar styloid avulsion fracture. Diagnosis: Left radial fracture, left wrist pain, left ulnar fracture Consults: 1100- Spoke with Dr Gaspar, who advised pt's L arm be reduced. 1130-attempted to reduce patient's left radius without much success. Patient's L hand was in a hand traction system for approximately 1 hour prior to second L wrist x-ray. CRITICAL CARE ADDENDUM: Indication: L radial reduction Time type: intermittent I provided a total of 55 minutes of critical care excluding separately billable procedures. This includes time w/ EMS, initial bedside evaluation, reviewing old records, review of testing done while under my care, discussion w/ the family, nurses, call center consultant and guiding the patient?s care while in the emergency department. Approximate time distribution: 15 minutes ? Initial evaluation, d/w involved parties, attempting to gather old records. 10 minutes ? Documenting medical record 10 minutes ? Review of results (EKGs, labs, imaging) 10 minutes ? Serial repeat bedside evaluation 10 minutes ? Discussing case with multiple providers Please see main chart for details. Excludes separately billable procedures. Patient Education/Shared MDM: Results of imaging shared with patient. She endorses improvement of symptoms following pain medication administration. Her left arm was placed in a new sugar-tong splint and sling. Patient strongly advised to follow-up with orthopedic surgery tomorrow, as planned. She will be discharged home with a prescription for [place]. Patient cannot take ibuprofen as she has a history of gastric bypass surgery. Strict return precautions provided. Patient verbalized understanding and is in agreement with plan. Vital signs stable at time of discharge. All questions answered. <Myah Parnell, ANKUSH - Last Filed: 12/15/24 15:40> Patient is a 49-year-old female presents to the ER with left forearm pain. She reports on Sunday, 2 days ago, she was hiking indicate ease and fell forward with her arms outstretched. Patient reports she went [facility] who diagnosed her with a radial ulnar fracture on her left forearm. She endorses increased pain, swelling, numbness/tingling in her left hand. Patient reports she has been unable to keep the medicine down due to for pain. She endorses a history of gastric bypass surgery and anxiety. Patient endorses mild relief once OCL removed from patient's left arm. She denies any left shoulder pain, left elbow pain, decreased movement in her digits, open wounds to her skin or recent fevers. Labs Ordered: None necessary Imaging Ordered: Left wrist x-ray, left forearm x-ray Medications Ordered: Morphine 4 mg IV, Zofran 4 mg IV Results: Pt's first L wrist x-ray indicates extra-articular fracture of the distal metaphyseal region of the left radius. The fracture is dorsal and radial impacted with 7 mm dorsal displacement and, dorsal and radial angulation resulting in 23 degree dorsal tilt and 6 degree radial inclination of the distal articular surface. Mild comminution along the radial side of the fracture planes Mild distraction of an ulnar solid avulsion fracture. No fracture of the fourth proximal radius and ulna with normal alignment and joint spaces of the left elbow. No fractures with normal alignment and joint spaces and the visualized left hand. Soft tissue swelling about the wrist. Pt's second L wrist x-ray indicates 1. Mildly comminuted extra articular fracture of the distal left radial metaphyseal region with unchanged displacement but decrease in degree of dorsal and radial angulation as detailed above. 2. Unchanged mild distraction of an ulnar styloid avulsion fracture. Diagnosis: Left radial fracture, left wrist pain, left ulnar fracture Consults: 1100- Spoke with Dr Gaspar, who advised pt's L arm be reduced. 1130-attempted to reduce patient's left radius without much success. Patient's L hand was in a hand traction system for approximately 1 hour prior to second L wrist x-ray. CRITICAL CARE ADDENDUM: Indication: L radial reduction Time type: intermittent I provided a total of 55 minutes of critical care excluding separately billable procedures. This includes time w/ EMS, initial bedside evaluation, reviewing old records, review of testing done while under my care, discussion w/ the family, nurses, call center consultant and guiding the patient?s care while in the emergency department. Approximate time distribution: 15 minutes ? Initial evaluation, d/w involved parties, attempting to gather old records. 10 minutes ? Documenting medical record 10 minutes ? Review of results (EKGs, labs, imaging) 10 minutes ? Serial repeat bedside evaluation 10 minutes ? Discussing case with multiple providers Please see main chart for details. Excludes separately billable procedures. Patient Education/Shared MDM: Results of imaging shared with patient. She endorses improvement of symptoms following pain medication administration. Her left arm was placed in a new sugar-tong splint and sling. Patient strongly advised to follow-up with orthopedic surgery tomorrow, as planned. She will be discharged home with a prescription for [place]. Patient cannot take ibuprofen as she has a history of gastric bypass surgery. Strict return precautions provided. Patient verbalized understanding and is in agreement with plan. Vital signs stable at time of discharge. All questions answered. This visit was performed by both a physician and an APC. I performed all aspects of the MDM as documented. <Luiz Bustamante MD - Last Filed: 12/15/24 16:56> Differential Diagnosis Differential diagnosis: Likely sprain and strain of wrist, fracture of wrist, Colles' fracture and fracture of hand <Myah Parnell APRN - Last Filed: 12/15/24 15:40> Imaging Data Attestation: I personally reviewed and interpreted this imaging study as follows: <Myah Parnell APRN - Last Filed: 12/15/24 15:40> Radiologist's impression: Impressions Forearm X-Ray 12/15/24 10:48 IMPRESSION: 1. Mildly comminuted extra articular fracture of the distal left radius with some dorsal displacement and dorsal and radial angulation. 2. Mildly distracted ulnar styloid avulsion fracture. Wrist X-Ray 12/15/24 10:48 IMPRESSION: 1. Mildly comminuted extra articular fracture of the distal left radius with some dorsal displacement and dorsal and radial angulation. 2. Mildly distracted ulnar styloid avulsion fracture. Wrist X-Ray 12/15/24 12:34 IMPRESSION: 1. Mildly comminuted extra articular fracture of the distal left radial metaphyseal region with unchanged displacement but decrease in degree of dorsal and radial angulation as detailed above. 2. Unchanged mild distraction of an ulnar styloid avulsion fracture. <Myah Parnell APRN - Last Filed: 12/15/24 15:40> Critical Care Time Critical Care Time Critical Care Time: Yes <Myah Parnell APRN - Last Filed: 12/15/24 15:40> Total Critical Care Time: 55 <Myah Parnell APRN - Last Filed: 12/15/24 15:40> Discharge Plan Discharge Clinical Impression: Ulna distal fracture, Closed fracture of left distal radius, Acute pain of left wrist <Myah Parnell APRN - Last Filed: 12/15/24 15:40> Patient Disposition: Home <Myah Parnell APRN - Last Filed: 12/15/24 15:40> Condition: Stable <Myah Parnell APRN - Last Filed: 12/15/24 15:40> Instructions: Antibiotic Form, Splint Care (ED) <Myah Parnell APRN - Last Filed: 12/15/24 15:40> Additional Instructions: Please return to the ER with any worsening symptoms. Follow-up with Orthopedic surgery as soon as possible. Take all medications as prescribed, including regularly scheduled medications. You may take [place] as needed for pain relief. <Myah Parnell APRN - Last Filed: 12/15/24 15:40> Patient Language: Filipino <Myah Parnell APRN - Last Filed: 12/15/24 15:40> Prescriptions: New hydrocodone-acetaminophen 5-325 mg tablet 2 tablet PO Q6H PRN (Reason: pain) Qty: 20 0RF No Action cholecalciferol (vitamin D3) 1,250 mcg (50,000 unit) capsule 1,250 mcg PO WEEKLY scopolamine base [Transderm-Scop] 1 mg over 3 days patch 3 day 1 patch TRANSDERM Q3D PRN (Reason: motion sickness) Qty: 4 0RF citalopram 40 mg tablet 40 mg PO DAILY Qty: 90 1RF Rx Instructions: TAKE 1 TABLET BY MOUTH EVERY DAY <Myah Parnell APRN - Last Filed: 12/15/24 15:40> Follow-up/Referrals: Marguerite Couch MD [Primary Care Provider, Family Practice] Chauncey Gaspar MD [Physician, Orthopedics] Referral Note: orthopedic surgery <Myah Parnell APRN - Last Filed: 12/15/24 15:40> Time of Disposition: 13:47 <Myah Parnell APRN - Last Filed: 12/15/24 15:40> 13:47 <Luiz Bustamante MD - Last Filed: 12/15/24 16:56>
--- NOTE | 2024-12-15 10:00 | PC.NURSE ---
OCL REMOVED BY POSTMASTER ANGEL
[2024-12-15] MEDS: SODIUM CHLORIDE 0.9% IV 1,000 ML 999 ML IV CONT (10:26)
[2024-12-15] MEDS: ONDANSETRON INJ 4 MG/2 ML VIAL IV PUSH (10:27)
[2024-12-15] MEDS: MORPHINE SULFATE (*CRX) 4 MG/ML INJ IV PUSH ×2 (10:29→11:48)
[2024-12-15] MEDS: diazePAM INJ (*CRX) 10 MG/2 ML SYRINGE 5 MG IV PUSH (11:37)
[2024-12-15 13:41] VITALS: BP 121/74; PULSE 78; RESP 16; O2SAT 98
[2024-12-15] MEDS: HYDROcodone/acetaminophen (*CRX) 5-325 MG TABLET 1 TAB PO (13:51)
== END 2024-12-15 14:07 | disposition home or self-care (01) ==
PROVIDERS: Emergency Provider Registered Nurse; PCP Family Medicine
DX: S52.502A Unspecified fracture of the lower end of left radius, initial encounter for closed fracture (principal); S52.602A Unspecified fracture of lower end of left ulna, initial encounter for closed fracture; W01.0XXA Fall on same level from slipping, tripping and stumbling without subsequent striking against object, initial encounter; F41.9 Anxiety disorder, unspecified; Z98.84 Bariatric surgery status
CPT/HCPCS: 20605; 25624; 73090; 73110; 96374; 96375; 96376; 99285; A9270; J2270; J2405; J3360; J7030

== ENCOUNTER 2024-12-20 13:36 | Observation (INO) | payer BC, SELFPAY ==
[2024-12-17 08:24] VITALS: BMI 30.9
--- NOTE | 2024-12-17 08:26 | PC.NURSE ---
Report to the Outpatient Waiting Room, entrance under the green pavilion located off [facility], at time _1100_ on date _[id number]_. Planned Procedure Time: _1pm_.? Time changes happen often and if your time is changed the preop area will call you the afternoon before. - You and your visitor will be asked to self-screen and do not enter if you have any COVID symptoms. Please call surgeon if you need to reschedule. - A mask is optional within the hospital at this time. Patients may have clear liquids (water, carbonated beverages, clear teas, apple juice) until 3 hours prior to surgery with a maximum of 20 ounces. - No food from midnight until time of surgery and no smoking, or chewing tobacco (or any form of nicotine). No chewing gum, candy or mints. Take only the following medications with a SIP of water on the morning of surgery: ___Citalopram and if needed hydrocodone.___ DO NOT STOP ANY OF YOUR OTHER PRESCRIPTION MEDICATIONS PRIOR TO SURGERY EXCEPT THE FOLLOWING Hold all vitamins and supplements for 3 days per anesthesiologist. stop now. Medications to discontinue per physician Date to take last dose Please no make-up, nail cypriot, hairspray, perfume, deodorant, or body powder the day of surgery.? No jewelry (including any body piercings) or valuables the day of surgery, leave them at home.? Please take a shower or bath the night before, or the morning of, surgery with an antibacterial soap.? Wear comfortable, loose fitting clothing.? - Jewelry must be removed prior to entering the operating room.? Rings and piercings that are not removed may be cut off. - The hospital will not accept responsibility for valuables.? - Please leave all valuables, including medications, at home the day of surgery. If you are going home after surgery, a licensed box truck driver must drive you home.? - NO public transportation without another adult if you receive anesthesia. - We recommend that an adult stay with you for 24 hours following discharge. - We also recommend that you do not drive, make important decision, drink alcoholic beverages, or take any drugs that were not prescribed by your health care provider for at least 24 hours after your discharge time. Follow any additional instructions given to you from your surgeon. Telephone instructions given to ___Angie__and asked if any additional questions and then verbalized understanding. Patient advised to call surgeon office or pre surgery nurse liaison [phone] if any additional questions.
[2024-12-19] VITALS (18 sets, daily range): BP systolic 107–131; BP diastolic 64–83; PULSE 68–100; RESP 12–18; TEMP 36.4–37.4; O2SAT 83–100; BMI 31.5
--- NOTE | 2024-12-19 09:42 | ECG_ITS ---
Test Date: 2024-12-19 11:15:00 Measurements Intervals [place] Rate: 60 P: 21 AL: 147 QRS: 6 QRSD: 71 T: 5 QT: 416 QTc: 416 Interpretive Statements SINUS RHYTHM LOW QRS VOLTAGE IN PRECORDIAL LEADS [QRS DEFLECTION < 1.0 mV IN CHEST LEADS] No previous ECG available for comparison Electronically Signed On 12-19-2024 12:43:50 CDT by Linus Jasso M.D.
[2024-12-19] MEDS: LACTATED RINGERS 1,000 ML 30 ML IV CONT ×2 (11:40→14:58)
[2024-12-19] MEDS: VANCOMYCIN 1,250 MG/NS 250 ML 1,250 MG/250 ML BAG 166.67 MG IVPB (11:45)
[2024-12-19] MEDS: ACETAMINOPHEN 500 MG TABLET 1000 MG PO (11:45)
[2024-12-19 11:58] LABS: BEDSIDEPREGUCG Negative (Negative)
--- NOTE | 2024-12-19 12:54 | WPDANESEPPF ---
Anes - Initial Pre Proc Eval Procedure: Operation Date: 12/19/24 13:00 Proposed Procedures p Open Reduction Internal Fixation Left Wrist - Chauncey Gaspar MD Date/Time: 12/19/24 12:54 Surgeon: Chauncey Gaspar MD Pre Op Diagnosis: Lt Wrist Pain Patient Data Age: 49 Gender: F Height: 1.63 m Weight: 83.4 kg Last Vital Signs Temp 98.1 F 12/19/24 11:44 Pulse 68 12/19/24 11:44 Resp 14 12/19/24 11:44 BP 124/83 12/19/24 11:44 Pulse Ox 100 12/19/24 11:44 Allergies Allergy/AdvReac Type Severity Reaction Status Date / Time No Known Allergies Allergy Mild Verified 12/19/24 11:43 Home Medications ?Medication ?Instructions ?Recorded ?Confirmed ?Type scopolamine base 1 mg over 3 days 1 patch transdermal Q3D PRN motion 06/26/22 12/17/24 Rx transdermal patch (Transderm-Scop) sickness #4 ea cholecalciferol (vitamin D3) 1,250 1,250 mcg PO WEEKLY 11/24/22 12/19/24 History mcg (50,000 unit) capsule citalopram 40 mg tablet 40 mg PO DAILY #90 tabs 12/08/24 12/19/24 Rx hydrocodone 5 mg-acetaminophen 325 2 tablet PO Q6H PRN pain #20 tabs 12/15/24 12/17/24 Rx mg tablet Laboratory Tests 12/19/24 11:53 POC Urine HCG, Qual Negative (Negative) Patient hx anesthesia problems: none Family hx anesthesia problems: none Results Review: All pre-operative results and documents have been reviewed as part of the pre-operative evaluation. [facility] Past Medical History Medical History Gallbladder & bile duct stone, acute cholecystitis and obstruction Surgical History Surgical History H/O hernia repair Gastric bypass status for obesity Family History Family History Other Family history of malignant neoplasm Social History Social History Smoking packs per day: 1 Smoking cigarettes per day: 20.0 Years smoked: 5 Smoking pack-years: 5.00 Smoking status: Former smoker Tobacco type: cigarettes Second hand tobacco smoke exposure: No Smoking end date: 12/17/94 Alcohol intake: current Substance use: never Substance use type: does not use Living arrangements: with family Gender identity (if verbalized by the patient): Female Sexual Orientation (if Verbalized by the Patient): Straight or Heterosexual Spiritual care concerns: No Agree to blood products: Yes Anes - Eval Final PreProcedure Day of Procedure 12/19/24 12:54 Patient weight: obese Lungs: normal air movement Airway: Mallampati scale class II Neurological: alert and oriented Last oral intake: >/= 8 hours ASA classification: II Emergent: no Anesthetic plan: proceed Anesthesia type and monitoring: general LMA and standard monitoring Results Review: All pre-operative results and documents have been reviewed as part of the pre-operative evaluation. Overall good health, pt walks 3-4 miles several times weekly, no cp or sob. Pt had hx of gastric bypass, denies any GERD or persistent GI complaints. Informed Consent: The patient's anesthetic plan and its attendant risks and benefits were discussed with the patient/family/POA. Questions were solicited and answers provided to the satisfaction of the patient/family/POA.
--- NOTE | 2024-12-19 12:58 | PM.IMHP ---
H&P: HPI History of Present Illness Date/Time: 12/19/24 12:58 Chief Complaint: 49 yr old female with Left Distal Radius Fracture. [facility] Past Medical History Medical History Gallbladder & bile duct stone, acute cholecystitis and obstruction Surgical History Surgical History H/O hernia repair Gastric bypass status for obesity Family History Family History Other Family history of malignant neoplasm Social History Social History Smoking packs per day: 1 Smoking cigarettes per day: 20.0 Years smoked: 5 Smoking pack-years: 5.00 Smoking status: Former smoker Tobacco type: cigarettes Second hand tobacco smoke exposure: No Smoking end date: 12/17/94 Alcohol intake: current Substance use: never Substance use type: does not use Living arrangements: with family Gender identity (if verbalized by the patient): Female Sexual Orientation (if Verbalized by the Patient): Straight or Heterosexual Spiritual care concerns: No Agree to blood products: Yes Meds Home Medications and Allergies Home Medications ?Medication ?Instructions ?Recorded ?Confirmed ?Type scopolamine base 1 mg over 3 days 1 patch transdermal Q3D PRN motion 06/26/22 12/17/24 Rx transdermal patch (Transderm-Scop) sickness #4 ea cholecalciferol (vitamin D3) 1,250 1,250 mcg PO WEEKLY 11/24/22 12/19/24 History mcg (50,000 unit) capsule citalopram 40 mg tablet 40 mg PO DAILY #90 tabs 12/08/24 12/19/24 Rx hydrocodone 5 mg-acetaminophen 325 2 tablet PO Q6H PRN pain #20 tabs 12/15/24 12/17/24 Rx mg tablet Allergies Allergy/AdvReac Type Severity Reaction Status Date / Time No Known Allergies Allergy Mild Verified 12/19/24 11:43 Vital Signs Vital Signs - 24 hr 12/19/24 11:44 Temperature 36.7 C Pulse Rate 68 Respiratory Rate 14 Blood Pressure 124/83 Pulse Oximetry 100 Exam Narrative: Left Wrist with swelling and paint with range of motion. Assessment and Plan Assessment and plan (1) Closed fracture of left distal radius: Code(s): S52.502A - Unspecified fracture of the lower end of left radius, initial encounter for closed fracture Status: Acute Plan Left Distal Radius Fracture ORIF
--- NOTE | 2024-12-19 13:00 | WPDHPUPDATE1 ---
History and Physical Update Update Date/Time: 12/19/24 13:00 History and Physical has been reviewed, including an updated exam of the patient. There are NO changes in the patient's condition. Risks, benefits, and alternatives have been discussed and questions answered. Patient agrees to proceed with procedure. Left Distal Radius ORIF. Risks include but are not limited to Nerve injury, Tendon Injury, blood vessel injury, Infection, hardware irritation requiring removal. She agrees to proceed.
[2024-12-19] MEDS: LIDO 1%/EPINEPHRINE 1:100,000 20 ML VIAL 30 ML INFILTRATE (13:38)
--- NOTE | 2024-12-19 14:55 | P.OP_ITS ---
Procedure Note - Detailed Date of Procedure 12/19/24 Pre-op Diagnosis Left Distal Radius Fracture, greater than 3 parts with displacement. Post-op Diagnosis Same Procedure Performed 1. Left Distal Radius Open Reduction with Volar Plate Fixation 2. Intra-Operative Fluoroscopy 3. Left Short Arm Splint application Surgeon Chauncey Gaspar MD Anesthesia General Indications 49 yr old female with Left Distal Radius Fracture. Findings Comminuted Left Distal Radius Fracture Description of Procedure After obtaining consent for the left wrist distal radius fracture open reduction internal fixation after marking patient's left wrist holding area, we discussed the risk benefits alternatives and complications for this procedure prior to bringing the patient back the supra not limited to infection nerve or blood vessel in injury hardware irritation requiring removal future and she agreed to proceed posttraumatic arthritis was also discussed. The patient was then brought to the operating room placed in supine position which time she underwent general anesthesia the left upper extremity was then prepped and draped in the standard sterile fashion a time-out was performed to verify correct site of surgery correct patient and and correct procedure. In verification made in order to verify the patient indeed received 1 g of vancomycin prior to the incision time. After this was done Esmarch exsanguination was used tourniquet was elevated to 260 mmHg. A volar incision was made dissection was carried down and the fracture site easily identified. It was noted immediately there was a radial fragment that h ad a radial tendency. Because of this I released the brachioradialis. After this was done I was able to reduce the fracture nicely with some effort made because there was a fracture fragment that was caught up on the ulnar side. After this was irrigated and debrided, I was able to obtain near anatomic reduction and held provisional fixation with a retrograde K-wire. After this was done I then placed a volar plate over the distal radius and proceeded to fill in the screw holes both proximally and distally and using intraoperative fluoroscopy to verify positioning and fracture reduction. Plate was in good position with all screws being extra-articular and good length. my goal was to establish radial height radial inclination and volar tilt and these were all obtained. I then irrigated copiously injected with lidocaine into the incisional site and closed the skin using Monocryl suture in the dermal layer and then used Steri- Strips. Tourniquet was deflated prior to closure. Hemostasis was obtained. I then placed the patient into a left short-arm splint and she was transferred to the recovery room in stable condition. See the patient back about 10-14 days for follow-up. Implants Accumed Volar Plate Estimated Blood Loss 20 Tourniquet Time Total Tourniquet Time: 65 Drains No Packing No Pathology None sent Complications None Condition Stable Disposition PACU
[2024-12-19] MEDS: fentaNYL CITRATE INJ (*CRX) 100 MCG/2 ML VIAL 25 MCG IV PUSH ×8 (14:59→16:01)
[2024-12-19] MEDS: oxyCODONE HCL (*CRX) 5 MG TAB IR PO (16:27)
--- NOTE | 2024-12-19 18:25 | ADMGEN ---
This patient, Lora Granados, was admitted to 2 Medical Room 256-01. Patient/family oriented to hospital policies and general routines including ID bracelet, bed and alarms, visiting hours, pain management, procedures, bathroom and other care routines, personal items, smoking policy, room service/diet, and visiting hours. Information on how to activate the Rapid Response Team has been discussed. Patient/Family are encouraged to report perceived risks to care and to ask questions if they do not understand what they are told or what they should do.
[2024-12-19] MEDS: HYDROcodone/acetaminophen (*CRX) 10-325 MG TABLET 1 TAB PO ×2 (19:12→23:57)
[2024-12-19] MEDS: CYCLOBENZAPRINE HCL 10 MG TABLET PO (21:33)
--- NOTE | ~2024-12-20 | XR_ITS ---
EXAMINATION: XR surgery orthopedic DATE: 12/19/2024 14:36 INDICATION: ORIF left wrist fracture TECHNIQUE: 3 fluoroscopic images of the left wrist were obtained during procedure performed by Dr. Gaspar. Radiologist was not present for the imaging or procedure. The amount of fluoroscopy time used during this procedure was 1.5 minutes. Total DAP was 0.531 Gycm^2. COMPARISON: None. FINDINGS: Images demonstrate interval reduction and internal volar T plate and screw fixation of the previously noted comminuted extra articular fracture of the distal left radius which is now in near-anatomic alignment with neutral tilt of the distal articular surface on the lateral projection. Minimal displacement of a fracture across the base of the ulnar styloid process which in remains unfixed. No new fractures identified. Joint space at the wrist and carpus appear relatively preserved. IMPRESSION: 1. Near-anatomic alignment post open reduction internal fixation of a mildly comminuted fracture at the fracture of the distal left radius. 2. Near-anatomic alignment of an unfixed styloid avulsion fracture. Reviewed, dictated and finalized at location A. IMPRESSION: 1. Near-anatomic alignment post open reduction internal fixation of a mildly co mminuted fracture at the fracture of the distal left radius. 2. Near-anatomic alignment of an unfixed styloid avulsion fracture.
[2024-12-20] MEDS: HYDROcodone/acetaminophen (*CRX) 5-325 MG TABLET 1 TAB PO ×2 (03:07→21:07)
[2024-12-20 04:14] VITALS: BP 123/70; PULSE 82; RESP 18; TEMP 36.8; O2SAT 97
[2024-12-20] MEDS: HYDROcodone/acetaminophen (*CRX) 10-325 MG TABLET 1 TAB PO ×4 (06:11→19:31)
[2024-12-20] MEDS: CYCLOBENZAPRINE HCL 10 MG TABLET PO ×2 (09:52→21:08)
[2024-12-20 13:09] VITALS: BP 120/71; PULSE 83; RESP 18; TEMP 36.5; O2SAT 97
--- NOTE | 2024-12-20 13:35 | PM.PNORT ---
Progress Note: A&P Assessment and Plan (1) Closed fracture of left distal radius: Code(s): S52.502A - Unspecified fracture of the lower end of left radius, initial encounter for closed fracture Status: Acute Assessment and Plan: Less pain. Ok for discharge to home Subjective Subjective Date/Time Seen: 12/20/24 13:35 Principal diagnosis: Left Wrist ORIF Exam Narrative: Left Hand mod swelling intact sensation Objective Data Vital Signs Vital Signs: Vital Signs - 24 hr 12/19/24 14:58 12/19/24 15:10 12/19/24 15:25 Temperature 36.4 C L Pulse Rate 84 83 84 Respiratory Rate 14 12 14 Blood Pressure 130/77 124/76 121/77 Pulse Oximetry 100 100 93 Oxygen Delivery Simple Face Mask Simple Face Mask Room Air Oxygen Flow Rate 8 8 12/19/24 15:40 12/19/24 15:55 12/19/24 16:07 Temperature Pulse Rate 78 86 85 Respiratory Rate 12 12 12 Blood Pressure 121/70 122/83 122/75 Pulse Oximetry 96 93 98 Oxygen Delivery Room Air Room Air Room Air Oxygen Flow Rate 12/19/24 16:11 12/19/24 16:41 12/19/24 17:10 Temperature Pulse Rate 83 94 99 Respiratory Rate 14 12 Blood Pressure 114/72 117/75 107/81 Pulse Oximetry 83 L Oxygen Delivery Room Air Room Air Room Air Oxygen Flow Rate 12/19/24 17:39 12/19/24 18:08 12/19/24 18:29 Temperature Pulse Rate 100 98 88 Respiratory Rate 14 Blood Pressure 121/81 119/81 131/74 Pulse Oximetry 98 Oxygen Delivery Room Air Room Air Oxygen Flow Rate 12/19/24 18:44 12/19/24 18:59 12/19/24 19:14 Temperature 36.8 C Pulse Rate 89 97 Respiratory Rate 14 18 Blood Pressure 126/72 121/74 Pulse Oximetry 97 97 96 Oxygen Delivery Room Air Oxygen Flow Rate 12/19/24 20:00 12/19/24 20:14 12/19/24 23:50 Temperature 37.4 C 36.6 C Pulse Rate 99 72 Respiratory Rate 18 18 Blood Pressure 116/64 122/72 Pulse Oximetry 99 99 Oxygen Delivery Room Air Oxygen Flow Rate 12/20/24 04:14 12/20/24 08:00 Temperature 36.8 C Pulse Rate 82 Respiratory Rate 18 Blood Pressure 123/70 Pulse Oximetry 97 Oxygen Delivery Room Air Oxygen Flow Rate Intake/Output Intake/Output: Intake & Output 12/17/24 12/18/24 12/19/24 12/20/24 23:59 23:59 23:59 23:59 Intake Total 1000 240 Balance 1000 240 Meds/Results Medications: Active Medications Generic Name Dose Route Start Last Admin Trade Name Freq PRN Reason Stop Dose Admin Hydrocodone Bitart/Acetaminophen 1 tab 12/19/24 18:12 12/20/24 10:43 Hydrocodone/Acetaminophen (*Crx) 10-325 Mg Tablet PO 1 tab Q4H PRN Administration Pain Rated 7-10 Hydrocodone Bitart/Acetaminophen 1 tab 12/19/24 21:08 12/20/24 03:07 Hydrocodone/Acetaminophen (*Crx) 5-325 Mg Tablet PO 1 tab Q4H PRN Administration Pain Rated 4-6 Cyclobenzaprine HCl 10 mg 12/19/24 21:09 12/20/24 09:52 Cyclobenzaprine Hcl 10 Mg Tablet PO 10 mg Q6HR PRN Administration muscle spasms Ondansetron HCl 4 mg 12/18/24 15:02 Ondansetron Inj 4 Mg/2 Ml Vial IV PUSH ONCE PRN Nausea Ondansetron HCl 4 mg 12/19/24 18:12 Ondansetron Inj 4 Mg/2 Ml Vial IV PUSH Q4H PRN Nausea And Vomiting Radiology Results: ITS Impressions Intraoperative X-Ray 12/19/24 14:49 IMPRESSION: 1. Near-anatomic alignment post open reduction internal fixation of a mildly comminuted fracture at the fracture of the distal left radius. 2. Near-anatomic alignment of an unfixed styloid avulsion fracture.
--- NOTE | 2024-12-20 15:12 | PC.NURSE ---
Spoke with Dr Gaspar via phone RE: lack of pain control. Pt consistently c/o pain > 7. Pt concerned with not being able to go home with uncontrolled pain today. Nurse requested IV pain medication so as to achieve pain control. Dr Gaspar said to keep patient overnight & give fentanyl to get pain control. Orders given.
[2024-12-20] MEDS: fentaNYL CITRATE INJ (*CRX) 100 MCG/2 ML VIAL 83.4 MCG IV PUSH ×2 (15:48→17:42)
[2024-12-20 18:46] VITALS: BP 115/74; PULSE 87; RESP 16; TEMP 36.9; O2SAT 98
[2024-12-20 21:05] VITALS: BP 125/85; PULSE 77; RESP 20; TEMP 36.8; O2SAT 97
[2024-12-21] MEDS: HYDROcodone/acetaminophen (*CRX) 5-325 MG TABLET 1 TAB PO ×2 (01:52→06:50)
[2024-12-21 06:34] VITALS: BP 111/71; PULSE 72; RESP 18; TEMP 36.7; O2SAT 97
[2024-12-21] MEDS: HYDROcodone/acetaminophen (*CRX) 10-325 MG TABLET 1 TAB PO (13:41)
[2024-12-21 13:46] VITALS: BP 120/84; PULSE 86; RESP 18; TEMP 36.1; O2SAT 100
--- NOTE | 2024-12-25 08:13 | P.DS_ITS ---
DS: Admitting Diagnosis Discharge Date 12/21/24 Admitting Diagnosis Left Wrist ORIF DS: Discharge Diagnosis Discharge Diagnosis (1) Closed fracture of left distal radius: Code(s): S52.502A - Unspecified fracture of the lower end of left radius, initial encounter for closed fracture Status: Acute Assessment and Plan: follow up 1 week Plan follow up 1 week DS: Summary Hospital Course Reason for hospitalization: Pain control s/p Left Wrist ORIF Hospital Course: s/p Left Wrist orif NVI post op Pain Management Left Wrist ORIF with iv pain meds post op Time spent discussing smoking cessation with patient: 3 to 10 minutes Status at Discharge Functional status at discharge: independent ambulation Time Spent with Patient Time attestation: Total time spent providing and/or coordinating discharge services: Time spent: Less than 30 minutes Exam Narrative: Left hand mod swelling with intact sensation and cap refill Const: General: cooperative Discharge Plan Discharge Attending physician on discharge: Chauncey Gaspar Consulting providers: Linus Jasso; Eriberto Carrillo; Ashish Pleitez Discharging Clinician: Chauncey Gaspar Patient Disposition: Home Activity: no shower Diet: as tolerated Discharge Instructions: Keep Left Wrist elevated and ice for the next week. Follow up in 10-14 days Patient Language: Venezuelan Stand Alone Forms: General Discharge Instructions, High Fiber Diet Follow-up/Referrals: Chauncey Gaspar MD [Physician, Orthopedics] Referral Note: 10-14 days Discharge Medications: Continued cholecalciferol (vitamin D3) 1,250 mcg (50,000 unit) capsule 1,250 mcg PO WEEKLY citalopram 40 mg tablet 40 mg PO DAILY Qty: 90 1RF Rx Instructions: TAKE 1 TABLET BY MOUTH EVERY DAY Discontinued scopolamine base [Transderm-Scop] 1 mg over 3 days patch 3 day 1 patch TRANSDERM Q3D PRN (Reason: motion sickness) Qty: 4 0RF Patient Comments: Says is for cruises. No Action hydrocodone-acetaminophen 5-325 mg tablet 2 tablet PO Q6H PRN (Reason: pain) Qty: 20 0RF Date of admission: 12/20/24 13:36 Primary Care Provider: Marguerite Couch Admitting Provider: Chauncey Gaspar Attending physician on admission: Chauncey Gaspar Condition: Stable
== END 2024-12-21 17:30 | disposition home or self-care (01) ==
LOC: ANHSURGERY 12-21 20:35 → ANH2MED 12-22 06:57
PROVIDERS: Admitting Provider Orthopaedic Surgery; PCP Family Medicine; Visit Provider Orthopaedic Surgery
PROC: (CPT 25575; principal; 2024-12-19 13:00)
DX: S52.502A Unspecified fracture of the lower end of left radius, initial encounter for closed fracture (principal); X58.XXXA Exposure to other specified factors, initial encounter; Z87.891 Personal history of nicotine dependence; Z98.84 Bariatric surgery status
CPT/HCPCS: 25607; 93005; 99199; A9270; C1713; G0378; J1100; J2003; J2004; J2250; J2270; J2405; J2704; J3010; J3373; J7120